=== PATIENT | female | born 1960 | race Caucasian/White ===

== ENCOUNTER 2017-09-10 11:16 | Emergency (ER) | payer MEDICARE, MEDICAID ==
[2017-09-10 11:22] VITALS: BP 120/75
[2017-09-10 12:08] LABS: APPEARANCE,URINE CLOUDY; BILIRUBIN,URINE NEGATIVE (NEGATIVE); COLOR,URINE YELLOW; GLUCOSE, URINE NEGATIVE (NEGATIVE); KETONES,URINE NEGATIVE (NEGATIVE); LEUKOCYTE ESTERASE,URINE LARGE (NEGATIVE); NITRITE,URINE NEGATIVE (NEGATIVE); PROTEIN,URINE NEGATIVE (NEGATIVE); URINE SPECIFIC GRAVITY 1.011
[2017-09-10] MEDS ORDERED: ACETAMINOPHEN 325 MG TABLET PO ONE (12:09)
--- NOTE | 2017-09-10 12:13 | ER Document Report ---
HPI - HPI Patient complains to provider of: pressure with voiding Onset: Other - 3 days Onset/Duration: Persistent Quality of pain: Burning Pain Level: 4 Context: Patient complains of pressure with voiding and dysuria for the past 3 days. Patient is concerned she has a UTI. Patient denies any fever, nausea, vomiting. Patient does have a history of right nephrectomy after having renal cell carcinoma. Patient denies any abnormal renal functioning. Associated Symptoms: Other - Dysuria. denies: Fever, Nausea, Vomiting Exacerbated by: Denies Relieved by: Denies Similar symptoms previously: Yes Recently seen / treated by doctor: No - ROS ROS below otherwise negative: Yes Systems Reviewed and Negative: Yes All other systems reviewed and negative - CONSTITUTIONAL Constitutional: DENIES: Fever, Chills - URINARY Urinary: REPORTS: Dysuria, Frequency - MUSCULOSKELETAL Musculoskeletal: DENIES: Back Pain - DERM Skin Color: Normal Skin Problems: None Past Medical History - General Information source: Patient - Social History Smoking Status: Current Every Day Smoker Frequency of alcohol use: None Drug Abuse: None Family History: Reviewed & Not Pertinent - Past Medical History Cardiac Medical History: Reports: Hx Hypertension Endocrine Medical History: Reports: Hx Diabetes Mellitus Type 2 Malignancy Medical History: Reports: Hx Renal (Kidney) Cancer Past Surgical History: Reports: Hx Cholecystectomy, Hx Hysterectomy, Other - Right nephrectomy Vertical Provider Document - CONSTITUTIONAL Agree With Documented VS: Yes Exam Limitations: No Limitations General Appearance: WD/WN, No Apparent Distress - INFECTION CONTROL TRAVEL OUTSIDE OF THE [place] IN LAST 30 DAYS: No - HEENT HEENT: Atraumatic, Normocephalic - NECK Neck: Normal Inspection, Supple - RESPIRATORY Respiratory: Breath Sounds Normal, No Respiratory Distress O2 Sat by Pulse Oximetry: 94 - CARDIOVASCULAR Cardiovascular: Regular Rate, Regular Rhythm - GI/ABDOMEN Gastrointestinal: Abdomen Tender - suprapubic. negative: Abdominal Guarding - BACK Back: Normal Inspection. negative: CVA Tenderness-Right, CVA Tenderness-Left - MUSCULOSKELETAL/EXTREMETIES Musculoskeletal/Extremeties: KIERA MALDONADO - NEURO Level of Consciousness: Awake, Alert, Appropriate Motor/Sensory: No Motor Deficit - DERM Integumentary: Warm, Dry, No Rash Course - Re-evaluation Re-evalutation: 09/10/17 12:[address] Monsivais regarding patient presentation and symptoms. Does recommend obtaining a chemistry panel to evaluate renal function. Recommends Keflex and Rocephin to treat her UTI. 09/10/17 Patient without any signs concerning for pyelonephritis or obstructive uropathy. Patient states she has a urinary tract infection at least once a year and this is typical of UTIs that she has had in the past. Patient nontoxic in appearance. No concern for sepsis. - Vital Signs Vital signs: Temp Pulse Resp BP Pulse Ox 98.3 F 92 18 120/75 94 09/10/17 11:22 09/10/17 11:22 09/10/17 11:22 09/10/17 11:22 09/10/17 11:22 - Laboratory Result Diagrams: 09/10/17 12:40 Laboratory results interpreted by me: 09/10/17 11:45 Urine Blood MODERATE H Urine Urobilinogen 2.0 H Ur Leukocyte Esterase LARGE H 09/10/17 13:39 Labs- Entire Visit 09/10/17 09/10/17 11:45 12:40 Sodium 137.7 Potassium 4.3 Chloride 99 Carbon Dioxide 25 Anion Gap 14 BUN 18 Creatinine 0.93 Est GFR ( Amer) > 60 Est GFR (Non-Af Amer) > 60 Glucose 76 Calcium 9.6 Urine Color YELLOW Urine Appearance CLOUDY Urine pH 5.0 Ur Specific [place] 1.011 Urine Protein NEGATIVE Urine Glucose (UA) NEGATIVE Urine Ketones NEGATIVE Urine Blood MODERATE H Urine Nitrite NEGATIVE Urine Bilirubin NEGATIVE Urine Urobilinogen 2.0 H Ur Leukocyte Esterase LARGE H Urine WBC (Auto) >182 Urine RBC (Auto) 18 U Hyaline Cast (Auto) 2 Urine Bacteria (Auto) 3+ Urine WBC Clumps MOD Squamous Epi Cells Auto 4 Urine Mucus (Auto) RARE Urine Ascorbic Acid NEGATIVE Discharge - Discharge Clinical Impression: UTI (urinary tract infection) Qualifiers: Urinary tract infection type: site unspecified Hematuria presence: with hematuria Qualified Code(s): N39.0 - Urinary tract infection, site not specified Condition: Stable Disposition: HOME, SELF-CARE Instructions: Acetaminophen, Cephalexin ([facility]), Rocephin ([facility]), Urinary Tract Infection ([facility]) Additional Instructions: Return immediately for any new or worsening symptoms Followup with your primary care provider, call tomorrow to make a followup appointment Urine culture is pending, we will call if you need any different treatment Prescriptions: Cephalexin Monohydrate [Keflex 500 mg Capsule] 500 mg PO Q6H 7 Days capsule Referrals: BRENT BHANDARI MD [Primary Care Provider] - Follow up tomorrow
[2017-09-10] MEDS ORDERED: LIDOCAINE 1% INJ-PF (10 MG/ML) 30 ML SDV INJ ONE (12:17)
[2017-09-10] MEDS ORDERED: CEFTRIAXONE INJ 1000 MG VIAL IM ONE (12:17)
[2017-09-10 13:21] LABS: ANION GAP 14 (5-19); BLOOD UREA NITROGEN 18 mg/dL (7-20); CALCIUM 9.6 mg/dL (8.4-10.2); CARBON DIOXIDE 25 mmol/L (22-30); CHLORIDE 99 mmol/L (98-107); GLUCOSE 76 mg/dL (75-110); POTASSIUM 4.3 mmol/L (3.6-5.0); SODIUM 137.7 mmol/L (137-145)
[2017-09-10] MEDS ORDERED: CEPHALEXIN 500 MG CAPSULE PO ONE (13:38)
== END 2017-09-10 14:00 | disposition home or self-care (01) ==
LOC: ER 11:16
DX: N39.0 Urinary tract infection, site not specified (principal); R31.9 Hematuria, unspecified; I10 Essential (primary) hypertension; E11.9 Type 2 diabetes mellitus without complications; Z85.528 Personal history of other malignant neoplasm of kidney; Z90.5 Acquired absence of kidney
CPT/HCPCS: 99283; 96372; 36415; 87086; 87088; 80048; 81001; 87186; A9270 ×2; J3490; J0696

== ENCOUNTER 2017-09-30 12:09 | Emergency (ER) | payer MEDICARE, MEDICAID ==
[2017-09-30] MEDS ORDERED: KETOROLAC TROMETHAMINE 60 MG/2 ML SDV IM ONE (13:24)
[2017-09-30] MEDS ORDERED: IPRATROPIUM/ALBUTEROL 0.5-2.5 MG/3 ML AMPUL NEB ONE (13:24)
--- NOTE | 2017-09-30 13:28 | ER Document Report ---
ED Respiratory Problem - General Chief Complaint: Cough Stated Complaint: FLU SYMPTOMS Time Seen by Provider: 09/30/17 13:02 Mode of Arrival: Ambulatory Information source: Patient TRAVEL OUTSIDE OF THE [place] IN LAST 30 DAYS: No - HPI Patient complains to provider of: Cough Onset: Yesterday Quality of pain: Achy Context: Hx COPD, Smoker Cough: Productive Sputum amount: Small Sputum color: Green Associated symptoms: Congestion, Cough, Headache, Wheezing. denies: Ankle/leg swelling, Allergy/hay fever, Anxiety, Bloody cough, Chest pain/discomfort, Chills, Difficulty breathing, Earache, Extertional dyspnea, Facial pain, Fever, Heart racing, Hoarseness, Hurts to breathe, Hyperventilation, Jaw pain, Leg/calf /joint pain, Muscle spasms, Orthopnea, PND, Short of breath, Sore Throat, Sweaty , Tingling face, Tingling hands, Unable to swallow, Toothache Notes: Patient arrives with complaints of cough for the last 2 weeks. She states that she has been coughing up some green sputum. She states that since yesterday she has developed body aches with headache and not feeling well in general. She is unsure if she has actually had a fever. She has had nausea, but denies any vomiting or diarrhea. She denies any chest pain or difficulty breathing. She denies any abdominal pain. She denies any dysuria or hematuria. No rashes. She denies any neck stiffness. She denies any blurred or loss vision. No unilateral numbness tingling or weakness. She denies any other complaints at this time. Patient is a smoker, has a history of possible COPD per her report. - Related Data Allergies/Adverse Reactions: erythromycin base [From Erythrocin] Allergy (Verified 09/10/17 11:18) Sulfa (Sulfonamide Antibiotics) Allergy (Verified 09/10/17 11:18) Past Medical History - Social History Smoking Status: Current Every Day Smoker Chew tobacco use (# tins/day): No Frequency of alcohol use: None Drug Abuse: None Family History: Reviewed & Not Pertinent Patient has suicidal ideation: No Patient has homicidal ideation: No - Past Medical History Cardiac Medical History: Reports: Hx Hypercholesterolemia, Hx Hypertension Endocrine Medical History: Reports: Hx Diabetes Mellitus Type 2 Renal/ Medical History: Denies: Hx Peritoneal Dialysis Malignancy Medical History: Reports: Hx Renal (Kidney) Cancer GI Medical History: Reports: Hx Gastroesophageal Reflux Disease Psychiatric Medical History: Reports: Hx Depression Past Surgical History: Reports: Hx Cholecystectomy, Hx Hysterectomy, Hx Kidney ( Renal Surgery) - right kidney removed, Other - Right nephrectomy Review of Systems - Review of Systems -: Yes All other systems reviewed and negative Physical Exam - Vital signs Vitals: Temp Pulse BP Pulse Ox 98.8 F 92 137/69 H 93 09/30/17 12:57 09/30/17 12:57 09/30/17 12:57 09/30/17 12:57 - Notes Notes: GENERAL: alert, cooperative, nontoxic, no distress. HEAD: normocephalic, atraumatic EYES: conjunctiva pink without discharge, no external redness or swelling. Pupils are equal, round, reactive to light. EARS: no external swelling, no external redness. TMs pearly raya. No perforation. No erythema. No external redness or swelling. NOSE: atraumatic, no external swelling. Nasal congestion noted. MOUTH/THROAT: mucous membranes moist and pink, posterior pharynx without erythema, swelling, exudate. No trismus or drooling. NECK: soft, supple, full range of motion, no meningismus. CHEST: no distress, lungs clear and equal throughout. Expiratory wheezing with slightly diminished breath sounds noted throughout.. CARDIAC: regular rate and rhythm, no murmur, normal capillary refill, normal pulses. No peripheral edema noted. BACK: full range of motion, no CVA tenderness. EXTREMITIES: full range of motion of all extremities. No redness, no swelling. NEURO: alert and oriented x 3, cranial nerves II through XII are grossly intact. Upper and lower extremities are equal throughout. Normal sensation. No focal deficits, full range of motion of all extremities. normal finger to nose. PYSCH: appropriate mood, affect. Patient is cooperative. SKIN: pink, warm, dry, no rash. Course - Re-evaluation Re-evalutation: 09/30/17 15:45 Patient is nontoxic. Stable vitals. The patient has had a cough for last 2 weeks and developed body aches and not feeling well yesterday. Also complains of a headache. She has a normal neurological exam. She is afebrile here. She has no neck stiffness or signs of meningitis. The patient is noted to have some expiratory wheezing and diminished breath sounds on exam initially. This has improved after breathing treatments in this patient states that she feels somewhat better after breathing treatments. Influenza screen was negative, chest x-ray is negative for acute findings. Patient is in no distress at this time. She will be discharged home with prednisone, albuterol, Hycodan for symptomatic treatment. She was instructed to stop smoking. Follow-up if not improving in the next 3-5 days, sooner for worsening pain, fever, difficulty breathing or swallowing, or for any further concerns. The patient is noted to have elevated blood pressure during today's emergency department visit. The patient was informed of this finding. The patient was instructed that this may be related to pre-hypertension and requires further evaluation with a primary care provider. The patient has no hypertensive symptoms at this time. The patient's emergency department workup and current diagnosis were explained to the patient and or family. Follow-up instructions were provided. Medications if prescribed were discussed. Instructions for when to return to the emergency department including specific worrisome symptoms were discussed with the patient and/or family. - Vital Signs Vital signs: Temp Pulse Resp BP Pulse Ox 98.8 F 92 137/69 H 93 09/30/17 12:57 09/30/17 12:57 09/30/17 12:57 09/30/17 12:57 - Diagnostic Test Radiology reviewed: Image reviewed, Reports reviewed - No acute findings of the chest per the radiologist Discharge - Discharge Clinical Impression: Acute bronchitis Qualifiers: Bronchitis organism: unspecified organism Qualified Code(s): J20.9 - Acute bronchitis, unspecified Condition: Stable Disposition: HOME, SELF-CARE Instructions: Bronchitis ([facility]) Additional Instructions: Take medications as prescribed. Follow-up with your doctor if not better in the next 3-5 days. Follow-up sooner for worsening symptoms, difficulty breathing, chest pain, neck stiffness, rash, blurred or loss vision, numbness, tingling, weakness, or for any further concerns. The medication you were prescribed today may cause drowsiness. Do not drive or operate heavy machinery while taking this medication. Your blood pressure was elevated during today's visit. Have this rechecked with your doctor. Prescriptions: Hydrocodone Bit/Homatropine [Hycodan Syrup 5-1.5 mg/5 ml Ud Cup] 5 ml PO Q4HP PRN #120 ml PRN Reason: Albuterol Sulfate [Proair HFA Inhalation Aerosol 8.5 gm MDI] 2 puff IH Q4H PRN # 1 mdi PRN Reason: Inhaler, Assist Devices [Space Chamber Plus] 1 each MC Q4H PRN #1 spacer PRN Reason: Prednisone [Deltasone 20 mg Tablet] 3 tab PO DAILY 5 Days tablet Forms: Elevated Blood Pressure, Smoking Cessation Education Referrals: BRENT BHANDARI MD [Primary Care Provider] - Follow up as needed
--- NOTE | 2017-09-30 13:52 | RADIOLOGY REPORT (SQ) ---
EXAM DESCRIPTION: CHEST PA/LAT COMPLETED DATE/TIME: 09/30/2017 1:44 pm REASON FOR STUDY: cough COMPARISON: None. EXAM PARAMETERS: NUMBER OF VIEWS: two views TECHNIQUE: Digital Frontal and Lateral radiographic views of the chest acquired. RADIATION DOSE: NA LIMITATIONS: none FINDINGS: LUNGS AND PLEURA: No opacities, masses or pneumothorax. No pleural effusion. MEDIASTINUM AND HILAR STRUCTURES: No masses or contour abnormalities. HEART AND VASCULAR STRUCTURES: Heart normal size. No evidence for failure. BONES: No acute findings. HARDWARE: None in the chest. OTHER: No other significant finding. IMPRESSION: NO SIGNIFICANT RADIOGRAPHIC FINDING IN THE CHEST. TECHNICAL DOCUMENTATION: JOB ID: [id number] [employer]- All Rights Reserved
[2017-09-30 15:12] LABS: A TYPE INFLUENZA AG NEGATIVE (NEGATIVE); B INFLUENZA AG NEGATIVE (NEGATIVE)
[2017-09-30] MEDS ORDERED: HYDROCODONE/ACETAMINOPHEN 5-325 MG TABLET PO ONE (15:44)
[2017-09-30] MEDS ORDERED: PREDNISONE 20 MG TABLET PO ONE (15:44)
[2017-09-30 16:04] VITALS: BP 128/80
== END 2017-09-30 16:04 | disposition home or self-care (01) ==
LOC: ER 12:09
DX: J20.9 Acute bronchitis, unspecified (principal); R05 Cough; R51 Headache; R06.2 Wheezing; I10 Essential (primary) hypertension; E11.9 Type 2 diabetes mellitus without complications; R11.0 Nausea; F17.200 Nicotine dependence, unspecified, uncomplicated; Z88.1 Allergy status to other antibiotic agents; Z88.2 Allergy status to sulfonamides; Z85.528 Personal history of other malignant neoplasm of kidney; Z90.5 Acquired absence of kidney
CPT/HCPCS: 94640; 99284; 96372; 87804; 71046; J1885; A9270 ×3; J7512; J7620